=== PATIENT | male | born 1935 | race Caucasian/White ===

== ENCOUNTER 2021-01-27 15:38 | Observation (INO) | payer MEDICARE, BC ==
--- NOTE | 2021-01-27 16:30 | ED ---
General Adult HPI - General Chief complaint: Altered Mental Status Stated complaint: AMS Time Seen by Provider: 01/27/21 16:05 Source: patient, family (Daughter), RN notes reviewed, old records reviewed Mode of arrival: ambulatory Limitations: no limitations - History of Present Illness Initial comments: This is a well-appearing 85-year-old white male that presents to the emergency room with his daughter as a transfer from [facility]. Patient was sent for observation and a neuro consult with an MRI for altered mental status. 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 Patient has been having hallucinations and has fallen out of bed at [facility] twice since. Patient denies hitting his head. Patient does have history of a left lobectomy due to cancer. He is a lro-[id number]-[id number] diabetic, hypertension, chronic kidney disease, COPD, cardiac stenosis and hyperlipidemia. -: days(s) (1) Location: right, lower extremity Radiation: non-radiation Severity scale (1-10): 5 Quality: aching Consistency: intermittent Improves with: rest Worsens with: movement Associated Symptoms: denies other symptoms Treatments Prior to Arrival: other (Transfer from [facility]) - Related Data Allergies Allergy/AdvReac Type Severity Reaction Status Date / Time No Known Allergies Allergy Verified 01/27/21 17:10 Review of Systems ROS Statement: Those systems with pertinent positive or pertinent negative responses have been documented in the HPI. ROS Other: All systems not noted in ROS Statement are negative. Past Medical History Past Medical History: COPD, Diabetes Mellitus, Hyperlipidemia, Hypertension Additional Past Medical History / Comment(s): hyperkalema, Prostate Cancer. Lung Cancer. Hypertension. Osteoarthritis. Chronic Kindey dx. c. carotid stenosis. Chronic Pain History of Any Multi-Drug Resistant Organisms: None Reported Additional Past Surgical History / Comment(s): left lower lobe of lung. left knee. Smoking Status: Former smoker Past Alcohol Use History: None Reported Past Drug Use History: None Reported General Exam Limitations: no limitations General appearance: alert, in no apparent distress Head exam: Present: atraumatic, normocephalic, normal inspection Eye exam: Present: normal appearance, PERRL, EOMI. Absent: scleral icterus, conjunctival injection, periorbital swelling Pupils: Present: miosis ENT exam: Present: normal exam, normal oropharynx, mucous membranes moist Neck exam: Present: normal inspection, full ROM. Absent: tenderness, m eningismus, lymphadenopathy Respiratory exam: Present: normal lung sounds bilaterally, other (Left lower lobe lobectomy absent breath sounds). Absent: respiratory distress, wheezes, rales, rhonchi, stridor Cardiovascular Exam: Present: regular rate, normal rhythm, normal heart sounds. Absent: systolic murmur, diastolic murmur, rubs, gallop, clicks GI/Abdominal exam: Present: soft, normal bowel sounds. Absent: distended, tenderness, guarding, rebound, rigid Extremities exam: Present: normal inspection, full ROM, normal capillary refill. Absent: tenderness, pedal edema, joint swelling, calf tenderness Back exam: Present: normal inspection. Absent: tenderness, CVA tenderness (R), CVA tenderness (L) Neurological exam: Present: alert, oriented X3, CN II-XII intact. Absent: motor sensory deficit Expanded Patient oriented to: Present: person, place, time Speech: Present: fluid speech Cranial nerves: EOM's Intact: Normal, Gag Reflex: Normal, Tongue Deviation: Normal, Facial Sensation: Normal Motor strength exam: RUE: 5, LUE: 5, RLE: 5, LLE: 5 Eye Response: (4) open spontaneously Motor Response: (6) obeys commands Verbal Response: (5) oriented [place] Total: 15 Psychiatric exam: Present: normal affect, normal mood Skin exam: Present: warm, dry, intact, normal color. Absent: rash, cyanosis, diaphoretic, petechiae, pallor Course Vital Signs 01/27/21 15:49 Temperature 98.6 F Pulse Rate 99 Respiratory 20 Rate Blood Pressure 160/90 O2 Sat by Pulse 96 Oximetry Medical Decision Making - Medical Decision Making This is a well-appearing 85-year-old male that presents to the emergency room as a transfer from [facility] for neuro consult and MRI for altered mental status. Patient is alert and oriented 4 with no focal neurological deficits. He denies any headaches or head injuries. He has recently been taking Rosholt for hip pain which daughter states could likely be the cause of his falls. Case discussed with Dr. Lynne. Disposition Clinical Impression: Altered mental status Disposition: ADMITTED IP TO THIS HOSP Condition: Good Decision Date: 01/27/21 Decision Time: 16:44
[2021-01-27] MEDS ORDERED: NALOXONE 0.4 MG/ML 1 ML VIAL IV PRN (16:44)
[2021-01-27 20:39] LABS: Glucose,Whole Blood 375 mg/dL (75-99)
[2021-01-27] MEDS: INSULIN ASPART (NovoLOG) 100 UNIT/ML VIAL SQ SCH (21:22)
[2021-01-27] MEDS ORDERED: IPRATROPIUM-ALBUTEROL 3 ML NEB INHALATION PRN (23:21)
--- NOTE | 2021-01-27 23:31 | P.HPIM ---
History of Present Illness H&P Date: 01/27/21 Chief Complaint: fall 85 year old male with DM on oral hypoglycemics, hypertension , hyperlipidemia, CKD 3, COPD patient is an assisted living facility resident , patient daughter brings him in today for a fall at the assisted living . patient tells me, he was snoozing on the chair , woke up , and , he thinks, he was half asleep tried to get up and somehow missed his walker and fell. he denies head injury or Loss of consciousness. he denies any associated palpitations, dizziness, or lightheadedness. he fell and could not get up and pressed the panic button on his emergency life vest he is wearing. patient daughter reports, that since he was diagnosed with severe osteoarthritis and necrosis of the head of the right femur, he was started on norco, and since then he sustained 3 falls. no history of stroke or CAD. patient was evaluated at [facility] and workup was pretty much unremarkable for any acute pathology CT C-spine no acute fractures CT brain no acute pathology , chronic small vessel ischemia blood work showed anemia hgb 10.8 no baseline to compare , CKD3 cr 1.4, trops negative , urine drug screen positive for opiates. UA unremarkable WBC 9 imaging showed no acute fractures, right hip deformity of femur head and acetabulum confirmed by xray patient was sent to our hospital for neuro eval Review of Systems Pertinent positives as noted in HPI. All other systems were reviewed and are negative Past Medical History Past Medical History: COPD, Diabetes Mellitus, Hyperlipidemia, Hypertension Additional Past Medical History / Comment(s): hyperkalema, Prostate Cancer. Lung Cancer. Hypertension. Osteoarthritis. Chronic Kindey dx. c. carotid stenosis. Chronic Pain History of Any Multi-Drug Resistant Organisms: None Reported Additional Past Surgical History / Comment(s): left lower lobe of lung. left knee. Smoking Status: Former smoker Past Alcohol Use History: None Reported Past Drug Use History: None Reported - Past Family History family Family Medical History: No Reported History Medications and Allergies Home Medications Medication Instructions Recorded Confirmed Type Acetaminophen [Tylenol Arthritis] 1,300 mg PO TID PRN 01/27/21 01/27/21 History Aspirin EC [Ecotrin Low Dose] 81 mg PO DAILY@0700 01/27/21 01/27/21 History Calcium Carbonate [Tums] 1,000 mg PO Q2H PRN 01/27/21 01/27/21 History Citalopram Hydrobromide [CeleXA] 20 mg PO DAILY@69901/27/21 01/27/21 History Diltiazem HCl [Diltiazem HCl 24Hr 240 mg PO DAILY@69901/27/21 01/27/21 History ER] Docusate [Colace] 100 mg PO BID@07,199901/27/21 01/27/21 History HYDROcodone/APAP 5-325MG [[place] 1 tab PO TID@0700,1400,199901/27/21 01/27/21 History 5-325] Magnesium Hydroxide [Milk of 2,400 mg PO DAILY PRN 01/27/21 01/27/21 History Magnesia] Miconazole Nitrate [Miconazole 1 applic TOPICAL BID PRN 01/27/21 01/27/21 History Nitrate 2%] Multivitamins, Thera [Multivitamin 1 tab PO DAILY 01/27/21 01/27/21 History (formulary)] Oxybutynin Chloride 5 mg PO BID@0700,17001/27/21 01/27/21 History Polyethylene Glycol 3350 [Miralax] 17 gm PO DAILY PRN 01/27/21 01/27/21 History Rosuvastatin [Crestor] 10 mg PO DAILY@169901/27/21 01/27/21 History glipiZIDE [Glucotrol] 5 mg PO DAILY@0701/27/21 01/27/21 History guaiFENesin-DM 100-10MG/5ML 5 ml PO Q4H PRN 01/27/21 01/27/21 History [Robitussin DM] lisinopriL [Zestril] 2.5 mg PO DAILY@0701/27/21 01/27/21 History Allergies Allergy/AdvReac Type Severity Reaction Status Date / Time No Known Allergies Allergy Verified 01/27/21 19:12 Physical Exam Vitals: Vital Signs Temp Pulse Resp BP Pulse Ox 01/27/21 18:30 98.1 F 01/27/21 15:49 98.6 F 99 20 160/90 96 Intake and Output 01/27/21 01/27/21 01/27/21 06:59 14:59 22:59 Output Total 1200 Balance -1200 Output: Urine 1200 Uretheral (Esquivel) 1200 Other: Weight 90.718 kg Constitutional: No acute distress, conversant, pleasant Eyes: Anicteric sclerae, moist conjunctiva, Pupils equal round reactive to light ENMT: NC/AT Oropharynx clear, no erythema, or exudates Neck: Supple, FROM, no masses, or JVD No carotid bruits No thyromegaly Lungs: Clear to auscultation Clear to percussion Normal respiratory effort, no accessory muscle use Cardiovascular: Heart regular in rate and rhythm, No murmurs, gallops, or rubs No peripheral edema Abdominal: Soft Nontender, no guarding, rebound or rigidity Abdomen moving with respiration Normoactive bowel sounds No hepatomegaly, No splenomegaly No palpable mass No abdominal wall hernia noted Skin: Normal temperature, tone, texture, turgor No induration No subcutaneous nodules No rash, lesions No ulcers Extremities: No digital cyanosis No clubbing Pedal pulses intact and symmetrical Radial pulses intact and symmetrical No calf tenderness Psychiatric: Alert and oriented to person, place and time Appropriate affect fair judgement Neuro Muscles Strength 5/5 in bilateral upper extremity , 4/5 of left lower extremity , and unable to examine his right lower extremity as limited range of motion due to pain , patient preferred flexion at hip and knee for comfort and seemed to be stiff. or in pain when attempted to move . Sensation to light touch grossly present throughout Cranial nerves II-XII grossly intact No focal sensory deficits Lymphatics: no palpable cervical or supraclavicular , or inguinal lymph nodes Assessment and Plan Assessment: fall at home fall precautions neuro checks PT eval imaging reviewed no acute fractures tylenol for pain gentle IVF hydration esquivel cath care, inserted at [facility] chronic conditions DM , insulin sliding scale hypertension ,resume cardiac meds CKD 3 stable , monitor urine output , avoid nephrotoxic meds COPD compensated, duoneb PRN follow up labs patient is no code anticipated length of stay < 2 midnights anticipated discharge home
[2021-01-28] MEDS: ACETAMINOPHEN TAB 325 MG TAB PO PRN (04:23)
[2021-01-28] MEDS ORDERED: OXYBUTYNIN CHLORIDE 5 MG TAB PO SCH (09:00)
[2021-01-28 09:11] LABS: Glucose,Whole Blood 198 mg/dL (75-99)
[2021-01-28] MEDS: CITALOPRAM HYDROBROMIDE 20 MG TAB PO SCH (10:03)
[2021-01-28] MEDS: ASPIRIN 81 MG PO SCH (10:03)
[2021-01-28] MEDS: INSULIN ASPART (NovoLOG) 100 UNIT/ML VIAL SQ SCH ×4 (10:03→20:50)
[2021-01-28] MEDS: DOCUSATE 100 MG CAP PO SCH ×2 (10:03→20:50)
[2021-01-28] MEDS: DILTIAZEM CD 240 MG CAP.ER.24H PO SCH (10:04)
[2021-01-28 12:24] LABS: Glucose,Whole Blood 275 mg/dL (75-99)
[2021-01-28 12:25] LABS: Basophils % (A) 0 %; Eosinophils # (A) 0.2 k/uL (0-0.7); Eosinophils % (A) 2 %; HCT 33.5 % (39.0-53.0); HGB 10.7 gm/dL (13.0-17.5); Lymphocytes # (A) 1.6 k/uL (1.0-4.8); Lymphocytes % (A) 17 %; MCH 30.5 pg (25.0-35.0); MCV 95.5 fL (80.0-100.0); Mean Platelet Volume 7.5; Monocytes # (A) 0.5 k/uL (0-1.0); Monocytes % (A) 5 %; Neutrophils # (A) 7.2 k/uL (1.3-7.7); Neutrophils % (A) 75 %; Platelet Count 307 k/uL (150-450); RBC 3.51 m/uL (4.30-5.90); RDW 12.4 % (11.5-15.5); WBC 9.6 k/uL (3.8-10.6)
[2021-01-28 16:40] LABS: African American GFR (CKD) 57.3 (60.0-200.0); Anion Gap 2.3 mmol/L (4.00-12.00); BUN/Creat Ratio 21.54 Ratio (12.00-20.00); Calcium 9.7 mg/dL (8.7-10.3); Carbon Dioxide 32.7 mmol/L (21.6-31.8); Non-African American GFR(CKD) 49.4 (60.0-200.0); Potassium 4.3 mmol/L (3.5-5.5)
--- NOTE | 2021-01-28 16:51 | P.PN ---
Subjective Patient was seen and evaluated by me this morning. Outer at bedside. Patient is feeling fairly well. Daughter informed me that his mentation is back to baseline. No more confusion. Objective - Vital Signs Vital signs: Vital Signs Temp 98 F 01/28/21 13:00 Pulse 81 01/28/21 13:00 Resp 17 01/28/21 13:00 BP 154/65 01/28/21 13:00 Pulse Ox 96 01/28/21 13:00 Intake & Output 01/27/21 01/28/21 01/28/21 18:59 06:59 18:59 Intake Total 240 550 500 Output Total 2200 1300 1000 Balance -1960 -750 -500 Weight 90.718 kg 90.718 kg Intake: Oral 240 550 500 Output: Urine 2200 1300 1000 Uretheral ([place]) 1200 Other: Voiding Method Indwelling Catheter Indwelling Catheter - Exam General: The patient is awake and alert, in no distress Eye: there is normal conjunctiva bilaterally. Neck: The neck is supple, there is no JVD. Cardiovascular: Normal S1-S2, no S3-S4, no murmurs. Respiratory: Lungs clear to auscultation bilaterally Gastrointestinal: Abdomen is soft, nontender Musculoskeletal: There is no pedal edema. Neurological:. Speech is normal. Skin: Skin is warm and dry - Labs CBC & Chem 7: 01/28/21 12:07 01/28/21 12:07 Labs: Abnormal Lab Results - Last 24 Hours (Table) 01/27/21 01/28/21 01/28/21 Range/Units 20:36 09:09 12:07 RBC 3.51 L (4.30-5.90) m/uL Hgb 10.7 L (13.0-17.5) gm/dL Hct 33.5 L (39.0-53.0) % Carbon Dioxide (21.6-31.8) mmol/L Anion Gap (4.00-12.00) mmol/L BUN (9.0-27.0) mg/dL Est GFR (CKD-EPI)AfAm (60.0-200.0) Est GFR (CKD-EPI)NonAf (60.0-200.0) BUN/Creatinine Ratio (12.00-20.00) Ratio Glucose (70-110) mg/dL POC Glucose (mg/dL) 375 H 198 H (75-99) mg/dL 01/28/21 01/28/21 Range/Units 12:07 12:19 RBC (4.30-5.90) m/uL Hgb (13.0-17.5) gm/dL Hct (39.0-53.0) % Carbon Dioxide 32.7 H (21.6-31.8) mmol/L Anion Gap 2.30 L (4.00-12.00) mmol/L BUN 28.0 H (9.0-27.0) mg/dL Est GFR (CKD-EPI)AfAm 57.3 L (60.0-200.0) Est GFR (CKD-EPI)NonAf 49.4 L (60.0-200.0) BUN/Creatinine Ratio 21.54 H (12.00-20.00) Ratio Glucose 251 H (70-110) mg/dL POC Glucose (mg/dL) 275 H (75-99) mg/dL Assessment and Plan Assessment: This is a 85-year-old male with complex past medical history noted below who presented from a local assisted living facility with a fall. Patient was evaluated at outside emergency room and computed tomography scan of the head and cervical spine with no acute findings. Patient was sent to our hospital for further evaluation 1. Fall with gait imbalance, PT/OT evaluation. Imaging negative. Patient at baseline only able to walk a few steps with a walker. 2. Urinary retention, status post Browne catheter insertion. Discontinue oxybutynin. 3. Chronic medical problems type 2 diabetes, essential hypertension, hyper lipidemia, stage III CKD, COPD, chronic hip pain, history of prostate cancer Today, I had a prolonged discussion with the patient and his daughter. They're not interested in any aggressive measures. We will continue supportive care. sewage disposal worker consultation for placement.
[2021-01-28 17:37] LABS: Glucose,Whole Blood 190 mg/dL (75-99)
--- NOTE | 2021-01-28 18:08 | P.CNNES ---
History of Present Illness Consult date: 01/28/21 Requesting physician: Aman Shepherd Reason for Consult: Altered mental status History of Present Illness: This is a tele-neurology consultation performed today on 01/28/2021. Time on tele-neurology robot from 11:40 to 12:10 PM. Patient is a 85-year-old male came to the hospital by ambulance as a transfer from [facility] yesterday at 3:38 PM. Patient was sent for observation and for a neurological consultation with an MRI for altered mental status. Per patient's daughter, patient was placed on Almo for pain from necrosis of his right hip by primary care for pain control. Patient has been having halluci nations Patient's vital signs on arrival blood pressure 160/90, pulse rate 99, temperature 98.6. EMS flow sheet not available in the chart. Patient's workup at [facility] revealed CT of the head showed age- related atrophy, chronic small vessel ischemic changes, without any acute intracranial process. CT of the cervical spine showed no fracture or subluxation. His x-ray of the left knee showed no fracture. No abnormality of the tibia and fibula. EKG was unconfirmed. Urine drug screen negative. UA negative. TSH normal. PT 20, INR 0.9, PTT 38.3. Glucose 205, BUN 39, creatinine 1.4. AST 24, ALT 23. WBC is normal. CK 41. Troponin negative. Chest x-ray showed no acute cardiopulmonary disease. Right hip x-ray showed marked deformity of the right hip femoral head and acetabulum with marked progression as compared to the x-ray from 2018. No fracture or dislocation. Right femur x-ray showed no fracture. Patient at this time does not do details why he came to the hospital. He denies headache, dizziness. He states his right knee hurts, had left knee surgery. Denies any abdominal pain or chest pain. He states he walks with a walker for the last 3-4 months. His 3 weeks ago as he was just standing there by her side. He did not take care of himself. Patient's daughter lives in [place] whereas he had 2 sons and one of them was murdered. He currently lives in a care home facility. Patient denies any slurring of speech, droopy face, any visual problems, numbness tingling or focal weakness. He states his memory is good. Patient states that he has smoked 1-1/2 pack per day for 35 years, quit in 1989 after he was diagnosed with lung cancer. He also quit drinking alcohol in 1989. I spoke to patient's daughter Randi in detail. She states that yesterday on Friday, he fell in front of the TV. He mentioned his daughter he saw behind the window someone pulled up a red pickup truck and a man. Patient was trying to get their to help that man, but patient fell. Patient's daughter states that they have a patio, nobody would be able to bring up pickup truck there. Patient was taken to [facility], where he was noted to have some slurring of speech, lip for slightly droopy, eyes droopy and he was talking with the thick tongue. He was taken to [facility], where it was felt that patient possibly is having side effects of Almo that was started about 10 days ago which probably resulted in delirium. However in order to rule out stroke, he was transferred to [facility]. 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 Patient had declined surgery, and only wanted pain control, as he also has significant knee arthritis and due to his age, he declined surgery. Review of Systems As above in HPI. All other 14 point review of systems reviewed and noncontribut ory Past Medical History Past Medical History: COPD, Diabetes Mellitus, Hyperlipidemia, Hypertension Additional Past Medical History / Comment(s): hyperkalema, Prostate Cancer. Lung Cancer. Hypertension. Osteoarthritis. Chronic Kindey dx. c. carotid stenosis. Chronic Pain History of Any Multi-Drug Resistant Organisms: None Reported Additional Past Surgical History / Comment(s): left lower lobe of lung. left knee. Past Anesthesia/Blood Transfusion Reactions: No Reported Reaction Smoking Status: Former smoker Past Alcohol Use History: None Reported Past Drug Use History: None Reported - Past Family History family Family Medical History: No Reported History Medications and Allergies Home Medications Medication Instructions Recorded Confirmed Type Acetaminophen [Tylenol Arthritis] 1,300 mg PO TID PRN 01/27/21 01/27/21 History Aspirin EC [Ecotrin Low Dose] 81 mg PO DAILY@0700 01/27/21 01/27/21 History Calcium Carbonate [Tums] 1,000 mg PO Q2H PRN 01/27/21 01/27/21 History Citalopram Hydrobromide [CeleXA] 20 mg PO DAILY@0701/27/21 01/27/21 History Diltiazem HCl [Diltiazem HCl 24Hr 240 mg PO DAILY@69901/27/21 01/27/21 History ER] Docusate [Colace] 100 mg PO BID@0700,199901/27/21 01/27/21 History HYDROcodone/APAP 5-325MG [Almo 1 tab PO TID@0700,1400,199901/27/21 01/27/21 History 5-325] Magnesium Hydroxide [Milk of 2,400 mg PO DAILY PRN 01/27/21 01/27/21 History Magnesia] Miconazole Nitrate [Miconazole 1 applic TOPICAL BID PRN 01/27/21 01/27/21 History Nitrate 2%] Multivitamins, Thera [Multivitamin 1 tab PO DAILY 01/27/21 01/27/21 History (formulary)] Oxybutynin Chloride 5 mg PO BID@0700,1700 01/27/21 01/27/21 History Polyethylene Glycol 3350 [Miralax] 17 gm PO DAILY PRN 01/27/21 01/27/21 History Rosuvastatin [Crestor] 10 mg PO DAILY@17001/27/21 01/27/21 History glipiZIDE [Glucotrol] 5 mg PO DAILY@0701/27/21 01/27/21 History guaiFENesin-DM 100-10MG/5ML 5 ml PO Q4H PRN 01/27/21 01/27/21 History [Robitussin DM] lisinopriL [Zestril] 2.5 mg PO DAILY@0701/27/21 01/27/21 History Allergies Allergy/AdvReac Type Severity Reaction Status Date / Time No Known Allergies Allergy Verified 01/27/21 19:12 Physical Examination - Vital Signs Vital Signs: Vital Signs Temp Pulse Pulse Resp BP BP Pulse Ox 01/28/21 05:25 176/73 01/28/21 04:20 98.1 F 88 20 181/77 95 01/27/21 19:45 98.4 F 87 20 146/87 94 L 01/27/21 18:30 98.1 F 09/25/21 15:49 98.6 F 99 20 160/90 96 Intake and Output 01/27/21 01/28/21 01/28/21 22:59 06:59 14:59 Intake Total 590 200 Output Total 2200 1300 Balance -1610 -1100 Intake: Oral 590 200 Output: Urine 2200 1300 Uretheral ([place]) 1200 Other: Voiding Method Indwelling Catheter Weight 90.718 kg Patient is an elderly male, in no acute distress. Patient is alert awake oriented to time place and person. He knows it is January 2021, fall season that he is in "[facility]"in [facility]. He knows name of the current president. Speech and language functions are normal. Attention, concentration and fund of knowledge appears somewhat adequate. Patient can name and repeat very well. No aphasia or dysarthria. On cranial examination, pupils are round and reacting to light, visual reed are full on confrontation, extraocular muscles are intact with no nystagmus. Face is symmetric, tongue protrudes to the midline. Palatal elevation and sensation normal, hearing is moderately reduced and shoulder shrug normal, facial sensation normal. Shoulder shrug normal. On muscle strength testing, there is no pronator drift and the strength is normal in arms distally and proximally. Patient has right hip and knee issues, therefore is slightly weak. Deep tendon reflexes are 1 in the upper limbs, 1 at the right knee trace at the left knee. Plantars downgoing bilaterally. Sensory to touch is equal with no neglect. Cerebellar function showed no ataxia for [id number] testing. No dysdiadochokinesia. Tone and bulk of muscles normal. Gait deferred. On general examination, there is no carotid bruit or murmur, S1-S2 audible. Abdomen is soft nontender. Chest is clear. Peripheral pulses are present. No edema. Results - Laboratory Findings CBC and BMP: 01/28/21 12:07 01/28/21 12:07 Abnormal Lab Findings: Abnormal Labs 01/27/21 01/28/21 20:36 09:09 POC Glucose (mg/dL) 375 H 198 H Assessment and Plan Assessment: * Altered mental status, possibly mild delirium. Patient reportedly developed hallucinations, after he was given Almo 10 days ago for right avascular hip necrosis (planned for conservative treatment). Patient is having fluctuating mental status, consistent with delirium. At present his mentation is completely intact. * Hypertension * Diabetes * Hyperlipidemia * Avascular hip necrosis right hip. Plan: * MRI of the brain * Carotid Doppler * B12, folate. * Continue aspirin 81 mg and Lipitor 20 mg. * Dr. Bill Crawley will resume neurology service from the morning. * I spoke to patient's daughter on the telephone in detail, spend 15 minutes in obtaining history, besides the time spent on teleneurology from 11:10 to 11:40 AM. Time with Patient: Greater than 30
--- NOTE | 2021-01-28 19:36 | US ---
EXAMINATION TYPE: US carotid duplex BILAT DATE OF EXAM: 01/28/2021 COMPARISON: NONE CLINICAL HISTORY: AMS, fall, rule out stenosis. altered mental status, fall. patient states carotid e ndarterectomy- left EXAM MEASUREMENTS: RIGHT: Peak Systolic Velocity (PSV) cm/sec ----- Right CCA: 101 ----- Right ICA: 124 ----- Right ECA: 125 ICA/CCA ratio: 1.23 RIGHT: End Diastole cm/sec ----- Right CCA: 10.4 ----- Right ICA: 22.7 ----- Right ECA: 0.0 LEFT: Peak Systolic Velocity (PSV) cm/sec ----- Left CCA: 140 ----- Left ICA: 194 ----- Left ECA: 119 ICA/CCA ratio: 1.39 LEFT: End Diastole cm/sec ----- Left CCA: 0.0 ----- Left ICA: 23.3 ----- Left ECA: 0.0 VERTEBRALS (direction of flow): Right Vertebral: Antegrade Left Vertebral: unable to visualize Rhythm: Normal moderate plaque right bifurcation. mild plaque left bifurcation. tortuous left ICA. increased velocit ies left CCA and left ICA IMPRESSION: There is antegrade flow in the right vertebral artery. We could not show flow in the left vertebral a rtery which is probably occluded. Moderate plaque formation bilaterally. There is 50-70% stenosis in the left common and internal carot id artery and close to 50% stenosis in the right internal carotid artery. Criteria for Assigning % of Stenosis / Diameter reduction (Estimation based on the indirect measurements of the internal carotid artery velocities (ICA PSV). 1. Normal (no stenosis)=ICA PSV < 125 cm/s: ratio < 2.0: ICA EDV<40 cm/s. 2. Less than 50% stenosis=ICA PSV < 125 cm/s: ratio < 2.0: ICA EDV<40 cm/s. 3. 50 to 69% stenosis=ICA PSV of 125 to 230 cm/s: ration 2.0 ? 4.0: ICA EDV 40-100 cm/s. 4. Greater than 70% stenosis to near occlusion= ICA PSV > 230 cm/s: ratio > 4.0: ICA EDV > 100 cm/s. 5. Near occlusion= ICA PSV velocities may be low or undetectable: variable ratio and ICA EDV. 6. Total occlusion=unable to detect flow.
[2021-01-28 20:18] LABS: Glucose,Whole Blood 230 mg/dL (75-99)
[2021-01-28] MEDS: ATORVASTATIN 20 MG TAB PO SCH (20:50)
[2021-01-29 07:05] LABS: Glucose,Whole Blood 195 mg/dL (75-99)
[2021-01-29] MEDS: CITALOPRAM HYDROBROMIDE 20 MG TAB PO SCH (08:12)
[2021-01-29] MEDS: ASPIRIN 81 MG PO SCH (08:12)
[2021-01-29] MEDS: INSULIN ASPART (NovoLOG) 100 UNIT/ML VIAL SQ SCH ×4 (08:13→20:53)
[2021-01-29] MEDS: DOCUSATE 100 MG CAP PO SCH ×2 (08:13→20:53)
[2021-01-29] MEDS: DILTIAZEM CD 240 MG CAP.ER.24H PO SCH (08:13)
[2021-01-29 10:51] LABS: Folate, Serum >24.0 ng/mL
[2021-01-29] MEDS: ACETAMINOPHEN TAB 325 MG TAB PO PRN (11:38)
[2021-01-29 12:06] LABS: Glucose,Whole Blood 302 mg/dL (75-99)
--- NOTE | 2021-01-29 12:16 | P.PN ---
Subjective Patient is doing well today. He was up in the chair when I saw him. No acute events overnight. Objective - Vital Signs Vital signs: Vital Signs Temp 98.7 F 01/29/21 11:02 Pulse 89 01/29/21 11:02 Resp 16 01/29/21 11:02 BP 117/64 01/29/21 11:02 Pulse Ox 95 01/29/21 11:02 Intake & Output 01/28/21 01/29/21 01/29/21 18:59 06:59 18:59 Intake Total 1040 Output Total 1000 1000 Balance 40 -1000 Intake: Oral 1040 Output: Urine 1000 1000 Other: Voiding Method Indwelling Catheter Indwelling Catheter Indwelling Catheter # Bowel Movements 2 1 - Exam General: The patient is awake and alert, in no distress Eye: there is normal conjunctiva bilaterally. Neck: The neck is supple, there is no JVD. Cardiovascular: Normal S1-S2, no S3-S4, no murmurs. Respiratory: Lungs clear to auscultation bilaterally Gastrointestinal: Abdomen is soft, nontender Musculoskeletal: There is no pedal edema. Neurological:. Speech is normal. Skin: Skin is warm and dry - Labs CBC & Chem 7: 01/28/21 12:07 01/28/21 12:07 Labs: Abnormal Lab Results - Last 24 Hours (Table) 01/28/21 01/28/21 01/28/21 Range/Units 12:07 12:07 12:19 RBC 3.51 L (4.30-5.90) m/uL Hgb 10.7 L (13.0-17.5) gm/dL Hct 33.5 L (39.0-53.0) % Carbon Dioxide 32.7 H (21.6-31.8) mmol/L Anion Gap 2.30 L (4.00-12.00) mmol/L BUN 28.0 H (9.0-27.0) mg/dL Est GFR (CKD-EPI)AfAm 57.3 L (60.0-200.0) Est GFR (CKD-EPI)NonAf 49.4 L (60.0-200.0) BUN/Creatinine Ratio 21.54 H (12.00-20.00) Ratio Glucose 251 H (70-110) mg/dL POC Glucose (mg/dL) 275 H (75-99) mg/dL 01/28/21 01/28/21 01/29/21 Range/Units 17:34 20:16 06:53 RBC (4.30-5.90) m/uL Hgb (13.0-17.5) gm/dL Hct (39.0-53.0) % Carbon Dioxide (21.6-31.8) mmol/L Anion Gap (4.00-12.00) mmol/L BUN (9.0-27.0) mg/dL Est GFR (CKD-EPI)AfAm (60.0-200.0) Est GFR (CKD-EPI)NonAf (60.0-200.0) BUN/Creatinine Ratio (12.00-20.00) Ratio Glucose (70-110) mg/dL POC Glucose (mg/dL) 190 H 230 H 195 H (75-99) mg/dL 01/29/21 Range/Units 11:58 RBC (4.30-5.90) m/uL Hgb (13.0-17.5) gm/dL Hct (39.0-53.0) % Carbon Dioxide (21.6-31.8) mmol/L Anion Gap (4.00-12.00) mmol/L BUN (9.0-27.0) mg/dL Est GFR (CKD-EPI)AfAm (60.0-200.0) Est GFR (CKD-EPI)NonAf (60.0-200.0) BUN/Creatinine Ratio (12.00-20.00) Ratio Glucose (70-110) mg/dL POC Glucose (mg/dL) 302 H (75-99) mg/dL Assessment and Plan Assessment: This is a 85-year-old male with complex past medical history noted below who presented from a local assisted living facility with a fall. Patient was evaluated at outside emergency room and computed tomography scan of the head and cervical spine with no acute findings. Patient was sent to our hospital for further evaluation 1. Fall with gait imbalance, PT/OT evaluation. Imaging negative. Patient at baseline only able to walk a few steps with a walker. 2. Urinary retention, status post Browne catheter insertion. Discontinued oxybutynin. 3. Chronic medical problems type 2 diabetes, essential hypertension, hyperlipidemia, stage III CKD, COPD, chronic hip pain, history of prostate cance r Plan for voiding trial today. Discontinue Browne catheter. Anticipate discharge home in the morning.
--- NOTE | 2021-01-29 12:34 | P.GSCN ---
History of Present Illness Consult date: 01/29/21 Reason for Consult: carotid stenosis Requesting physician: Bill Crawley History of present illness: This an 85-year-old male who was a transfer from [facility] 2 days ago with altered mental status changes. He has a past medical history of COPD, lung cancer status post left lobectomy, diabetes mellitus, hypertension, hyperlipidemia and carotid stenosis. He shouldn't states he had a left carotid endarterectomy several years ago and [place]. He does have a history of smoking but quit 35 years ago. The patient has no recollection of any events and is not sure why he was brought to the hospital. Apparently the patient was recently put on [place] for hip pain. According to neurology's note the daughter stated he had some slurring of the speech and facial drooping. Neurology was consulted for this reason. He had a CT of the brain that showed age-related atrophy, chronic small vessel ischemic changes, without any acute intracranial process. He had multiple CTs and x-rays done as well as part of this workup at [facility]. Neurology ordered a carotid duplex with findings of bilateral carotid stenosis for which vascular surgery has been consulted. The patient denies any extremity weakness, no visual changes, no difficulty with speaking or slurred speech, no difficulty with swallowing, no facial drooping or any other focal deficits. He denies any chest pain, shortness of breath, abdominal pain, nausea, vomiting, fever or chills. He states he has not been following with any vascular surgeon. He is taking a daily low-dose aspirin and Crestor 10 mg daily. MRI of the brain has been ordered, it is pending completion. Review of Systems A 14 point review of systems was completed all pertinent positives and negatives as stated in the HPI. Past Medical History Past Medical History: COPD, Diabetes Mellitus, Hyperlipidemia, Hypertension Additional Past Medical History / Comment(s): hyperkalema, Prostate Cancer. Lung Cancer. Hypertension. Osteoarthritis. Chronic [place] dx. c. carotid stenosis. Chronic Pain History of Any Multi-Drug Resistant Organisms: None Reported Additional Past Surgical History / Comment(s): left lower lobe of lung. left knee. Past Anesthesia/Blood Transfusion Reactions: No Reported Reaction Smoking Status: Former smoker Past Alcohol Use History: None Reported Past Drug Use History: None Reported - Past Family History family Family Medical History: No Reported History Medications and Allergies Home Medications Medication Instructions Recorded Confirmed Type Acetaminophen [Tylenol Arthritis] 1,300 mg PO TID PRN 01/27/21 01/27/21 History Aspirin EC [Ecotrin Low Dose] 81 mg PO DAILY@0701/27/21 01/27/21 History Calcium Carbonate [Tums] 1,000 mg PO Q2H PRN 01/27/21 01/27/21 History Citalopram Hydrobromide [CeleXA] 20 mg PO DAILY@69901/27/21 01/27/21 History Diltiazem HCl [Diltiazem HCl 24Hr 240 mg PO DAILY@69901/27/21 01/27/21 History ER] Docusate [Colace] 100 mg PO BID@07,199901/27/21 01/27/21 History HYDROcodone/APAP 5-325MG [[place] 1 tab PO TID@0700,1400,199901/27/21 01/27/21 History 5-325] Magnesium Hydroxide [Milk of 2,400 mg PO DAILY PRN 01/27/21 01/27/21 History Magnesia] Miconazole Nitrate [Miconazole 1 applic TOPICAL BID PRN 01/27/21 01/27/21 History Nitrate 2%] Multivitamins, Thera [Multivitamin 1 tab PO DAILY 01/27/21 01/27/21 History (formulary)] Oxybutynin Chloride 5 mg PO BID@0700,1700 01/27/21 01/27/21 History Polyethylene Glycol 3350 [Miralax] 17 gm PO DAILY PRN 01/27/21 01/27/21 History Rosuvastatin [Crestor] 10 mg PO DAILY@17001/27/21 01/27/21 History glipiZIDE [Glucotrol] 5 mg PO DAILY@0701/27/21 01/27/21 History guaiFENesin-DM 100-10MG/5ML 5 ml PO Q4H PRN 01/27/21 01/27/21 History [Robitussin DM] lisinopriL [Zestril] 2.5 mg PO DAILY@0700 01/27/21 01/27/21 History Allergies Allergy/AdvReac Type Severity Reaction Status Date / Time No Known Allergies Allergy Verified 01/27/21 19:12 Surgical - Exam Vital Signs Temp Pulse Resp BP Pulse Ox 98.6 F 99 20 160/90 96 01/27/21 15:49 01/27/21 15:49 01/27/21 15:49 01/27/21 15:49 01/27/21 15:49 General appearance: The patient is alert, oriented, appears in no acute distress. HET: Head is normocephalic and atraumatic. Pupils are equal and reactive. Neck: Supple without lymphadenopathy. Trachea midline. No carotid bruit. Heart: S1 S2. Regular rate and rhythm. Lungs: Clear to auscultation. Abdomen: Soft, nontender, nondistended. Extremities: Normal skin color and turgor. No cyanosis, rash, ulceration, clubbing, or edema. Bilateral palpable radial pulses. Neurological: No focal deficits. Alert and oriented 3. Results - Labs 01/28/21 12:07 01/28/21 12:07 Abnormal Lab Results - Last 24 Hours (Table) 01/28/21 01/28/21 01/28/21 Range/Units 12:07 12:07 12:19 RBC 3.51 L (4.30-5.90) m/uL Hgb 10.7 L (13.0-17.5) gm/dL Hct 33.5 L (39.0-53.0) % Carbon Dioxide 32.7 H (21.6-31.8) mmol/L Anion Gap 2.30 L (4.00-12.00) mmol/L BUN 28.0 H (9.0-27.0) mg/dL Est GFR (CKD-EPI)AfAm 57.3 L (60.0-200.0) Est GFR (CKD-EPI)NonAf 49.4 L (60.0-200.0) BUN/Creatinine Ratio 21.54 H (12.00-20.00) Ratio Glucose 251 H (70-110) mg/dL POC Glucose (mg/dL) 275 H (75-99) mg/dL 01/28/21 01/28/21 01/29/21 Range/Units 17:34 20:16 06:53 RBC (4.30-5.90) m/uL Hgb (13.0-17.5) gm/dL Hct (39.0-53.0) % Carbon Dioxide (21.6-31.8) mmol/L Anion Gap (4.00-12.00) mmol/L BUN (9.0-27.0) mg/dL Est GFR (CKD-EPI)AfAm (60.0-200.0) Est GFR (CKD-EPI)NonAf (60.0-200.0) BUN/Creatinine Ratio (12.00-20.00) Ratio Glucose (70-110) mg/dL POC Glucose (mg/dL) 190 H 230 H 195 H (75-99) mg/dL Diabetes panel 01/28/21 Range/Units 12:07 Sodium 139 (135-145) mmol/L Potassium 4.3 (3.5-5.5) mmol/L Chloride 104 (96-109) mmol/L Carbon Dioxide 32.7 H (21.6-31.8) mmol/L BUN 28.0 H (9.0-27.0) mg/dL Creatinine 1.3 (0.6-1.5) mg/dL Glucose 251 H (70-110) mg/dL Calcium 9.7 (8.7-10.3) mg/dL Calcium panel 01/28/21 Range/Units 12:07 Calcium 9.7 (8.7-10.3) mg/dL Pituitary panel 01/28/21 Range/Units 12:07 Sodium 139 (135-145) mmol/L Potassium 4.3 (3.5-5.5) mmol/L Chloride 104 (96-109) mmol/L Carbon Dioxide 32.7 H (21.6-31.8) mmol/L BUN 28.0 H (9.0-27.0) mg/dL Creatinine 1.3 (0.6-1.5) mg/dL Glucose 251 H (70-110) mg/dL Calcium 9.7 (8.7-10.3) mg/dL Adrenal panel 01/28/21 Range/Units 12:07 Sodium 139 (135-145) mmol/L Potassium 4.3 (3.5-5.5) mmol/L Chloride 104 (96-109) mmol/L Carbon Dioxide 32.7 H (21.6-31.8) mmol/L BUN 28.0 H (9.0-27.0) mg/dL Creatinine 1.3 (0.6-1.5) mg/dL Glucose 251 H (70-110) mg/dL Calcium 9.7 (8.7-10.3) mg/dL - Imaging Comments: Carotid duplex: Right ICA PSV 124, ICA/CCA ratio 1.23. Left ICA PSV 194, ICA/CCA ratio 1.39. Impression states antegrade flow in the right vertebral artery. Could not show flow in the left vertebral artery which is probably occluded. Moderate plaque formation bilaterally. There is 50-70% stenosis of the left common and internal carotid artery and close to 50% stenosis of the right internal carotid artery. Assessment and Plan Assessment: 1. Altered mental status changes 2. Bilateral ICA stenosis, 50-70% stenosis in the left ICA, less than 50% in the right ICA per carotid ultrasound 3. Recent fall 5. 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 History COPD 5. History of hypertension and hyperlipidemia 6. History of vascular disease, status post left endarterectomy 7. Diabetes mellitus Plan: 1. Continue aspirin and statin 2. Await MRI results 3. Await recommendations from neurology 4. Further recommendations to follow Thank you for this consultation, and allowing us take part in the plan of care of your patient during his hospital stay The impression and plan of care has been dictated as directed. Dr. Browne I performed a history and examination of this patient, discussed the same with the dictator. I agree with the dictator's note ,documented as a scribe. Any additional findings or plans will be noted.
[2021-01-29] MEDS ORDERED: CYANOCOBALAMIN 1,000 MCG/ML 1 ML VIAL IM ONE (16:30)
--- NOTE | 2021-01-29 16:37 | P.PN ---
Subjective Progress Note Date: 01/29/21 I'm seeing the patient for the first time for neurological work-up. Please refer to Dr. Pang's note for further details. Patient is accompanied with his daughter and she stated he is doing drastically better. Denies any further ptosis. Patient denies any focal weakness except for pain over the right hip. He denies of diplopia or slurring of speech. He had previous endartectomy of the left ICA Objective - Vital Signs Vital signs: Vital Signs Temp 98.7 F 01/29/21 11:02 Pulse 89 01/29/21 11:02 Resp 16 01/29/21 11:02 BP 117/64 01/29/21 11:02 Pulse Ox 95 01/29/21 11:02 Intake & Output 01/28/21 01/29/21 01/29/21 18:59 06:59 18:59 Intake Total 1040 Output Total 1000 1000 0 Balance 40 -1000 0 Intake: Oral 1040 Output: Urine 1000 1000 Post Void Residual 0 Other: Voiding Method Indwelling Catheter Indwelling Catheter Indwelling Catheter # Bowel Movements 2 1 - Exam Patient is an elderly male, in no acute distress. NEUROLOGICAL EXAM: Patient is alert awake oriented to time place and person. Speech and language functions are normal. Attention, concentration and fund of knowledge appears somewhat adequate. Patient can name and repeat very well. No aphasia or dysarthria. On cranial examination, pupils are round and reacting to light, visual reed are full on confrontation, extraocular muscles are intact with no nystagmus. Face is symmetric, tongue protrudes to the midline. Palatal elevation and sensation normal, hearing is moderately reduced and shoulder shrug normal, facial sensation normal. Shoulder shrug normal. On muscle strength testing, there is no pronator drift and the strength is normal in arms distally and proximally. Patient has right hip and knee issues, therefore is slightly weak. Tone and bulk of muscles normal. Sensory to touch is equal with no neglect. Cerebellar function showed no ataxia for [id number] testing. No dysdiadochokinesia. Deep tendon reflexes are 1 in the upper limbs, 1 at the right knee trace at the left knee. Plantars downgoing bilaterally. WORK-UP: Carotid duplex is reported as there is antegrade flow in the right vertebral artery. We could not show flow in the left vertebral artery which is probably occluded that. Moderate plaque formation bilaterally. There is a 50-70% stenosis in the left common and internal carotid artery and close to 50% stenosis in the right internal carotid artery. Borderline low vitamin B12 of 253 (normal is 200-944) Serum folate is more than 24 - Labs CBC & Chem 7: 01/28/21 12:07 01/28/21 12:07 Labs: Abnormal Lab Results - Last 24 Hours (Table) 01/28/21 01/28/21 01/28/21 Range/Units 12:07 17:34 20:16 Carbon Dioxide 32.7 H (21.6-31.8) mmol/L Anion Gap 2.30 L (4.00-12.00) mmol/L BUN 28.0 H (9.0-27.0) mg/dL Est GFR (CKD-EPI)AfAm 57.3 L (60.0-200.0) Est GFR (CKD-EPI)NonAf 49.4 L (60.0-200.0) BUN/Creatinine Ratio 21.54 H (12.00-20.00) Ratio Glucose 251 H (70-110) mg/dL POC Glucose (mg/dL) 190 H 230 H (75-99) mg/dL 01/29/21 01/29/21 Range/Units 06:53 11:58 Carbon Dioxide (21.6-31.8) mmol/L Anion Gap (4.00-12.00) mmol/L BUN (9.0-27.0) mg/dL Est GFR (CKD-EPI)AfAm (60.0-200.0) Est GFR (CKD-EPI)NonAf (60.0-200.0) BUN/Creatinine Ratio (12.00-20.00) Ratio Glucose (70-110) mg/dL POC Glucose (mg/dL) 195 H 302 H (75-99) mg/dL Assessment and Plan Assessment: * Altered mental status, possibly mild delirium. Patient reportedly developed hallucinations, after he was given [place] 10 days ago for right avascular hip necrosis (planned for conservative treatment). Patient is having fluctuating mental status, consistent with delirium. At present his mentation is completely intact. * Borderline low vitamin B12 of 253 (normal is 200-944) * Bilateral ICA stenosis of about 50-70% stenosis in the left ICA and less than the 2% stenosis in the right ICA Pro carotid duplex * History of left carotid endarectomy * Hypertension * Diabetes * Hyperlipidemia * Avascular hip necrosis right hip. * History of osteoarthritis on opiates Plan: * MRI Brain is ordered by Dr. Pang to rule out stroke since the per patient's daughter to notified that the neurology team that the patient has some slurring speech, drooping face and drooping lips. Patient is not interested in getting MRI of the brain and the patient daughter is at bite said and she stated that if the patient continues to have these symptoms she will try to arrange as outpatient. * Continue aspirin 81 mg daily. We'll not start the patient on dual antiplatelet because of risk of fall which increases risk of a bleeding with dual antiplatelets at. and I increased Lipitor from 20 mg daily at bedtime daily to 40mg especially with reported carotid stenosis. * Vascular surgery team is consulted for carotid stenosis. Regarding the patient carotid stenosis the patient is not interested in any intervention. * Because of the low vitamin B12 I started the patient on the vitamin B12 1000 g daily as well as one time IM. * Will defer the rest of medical management to the primary team. * Patient is not interested in surgery or any intervention over the the right hip. * Upon discharge recommend the patient to follow-up with a neurologist within 2 weeks as an outpatient. The plan is discussed with the patient and his daughter (who is at bedside). There is no further work-up. Neurology will sign off. Please reconsult if needed. Bill Crawley MD Neuro-Hospitalist. Time with Patient: Less than 30
[2021-01-29 17:23] LABS: Glucose,Whole Blood 251 mg/dL (75-99)
[2021-01-29 20:17] LABS: Glucose,Whole Blood 245 mg/dL (75-99)
[2021-01-29] MEDS: ATORVASTATIN 20 MG TAB PO SCH (20:53)
[2021-01-30 07:00] LABS: Glucose,Whole Blood 221 mg/dL (75-99)
[2021-01-30] MEDS: ASPIRIN 81 MG PO SCH (08:53)
[2021-01-30] MEDS: CITALOPRAM HYDROBROMIDE 20 MG TAB PO SCH (08:53)
[2021-01-30] MEDS: INSULIN ASPART (NovoLOG) 100 UNIT/ML VIAL SQ SCH ×2 (08:53→13:13)
[2021-01-30] MEDS: DOCUSATE 100 MG CAP PO SCH (08:53)
[2021-01-30] MEDS: DILTIAZEM CD 240 MG CAP.ER.24H PO SCH (08:53)
[2021-01-30] MEDS ORDERED: CYANOCOBALAMIN 500 MCG TAB PO SCH (09:00)
--- NOTE | 2021-01-30 11:02 | P.DS ---
Providers Date of admission: 01/27/21 16:55 Expected date of discharge: 01/30/21 Attending physician: Betty Arce MD Consults: 01/27/21 16:44 Consult Physician Routine Consulting Provider: Terri Pang Consult Reason/Comments: Altered mental status Do you want consulting provider notified?: Yes 01/29/21 07:55 Consult Physician Routine Consulting Provider: Govind Ortiz Consult Reason/Comments: carotid stenosis Do you want consulting provider notified?: Yes Primary care physician: [facility] Course: This is a 85-year-old male with complex past medical history noted below who presented from a local assisted living facility with a fall. Patient was evaluated at outside emergency room and computed tomography scan of the head and cervical spine with no acute findings. Patient was sent to our hospital for further evaluation 1. Fall with gait imbalance, PT/OT evaluation. Imaging negative. Patient at baseline only able to walk a few steps with a walker. 2. Urinary retention, status post Browne catheter insertion. Discontinued oxybutynin. Patient passed voiding trial 3. Chronic medical problems type 2 diabetes, essential hypertension, hyperlipidemia, stage III CKD, COPD, chronic hip pain, history of prostate cancer Patient was seen and evaluated by neurology and vascular surgery. MRA of the brain ordered by neurology but patient started on a pursue any further diagnostics. There was also bilateral ICA stenosis noted with history of left endarterectomy for which vascular surgery was consulted and plan is to follow-up outpatient. Patient will be discharged to rehab facility in a stable condition. General: The patient is awake and alert, in no distress Eye: there is normal conjunctiva bilaterally. Neck: The neck is supple, there is no JVD. Cardiovascular: Normal S1-S2, no S3-S4, no murmurs. Respiratory: Lungs clear to auscultation bilaterally Gastrointestinal: Abdomen is soft, nontender Musculoskeletal: There is no pedal edema. Neurological:. Speech is normal. Skin: Skin is warm and dry Patient Condition at Discharge: Fair Plan - Discharge Summary New Discharge Prescriptions: New Acetaminophen Tab [Tylenol] 650 mg PO Q6HR PRN tab PRN Reason: Mild Pain Or Fever > 100.5 Cyanocobalamin [Vitamin B-12] 1,000 mcg PO DAILY tab Continue lisinopriL [Zestril] 2.5 mg PO DAILY@0700 glipiZIDE [Glucotrol] 5 mg PO DAILY@0700 Multivitamins, Thera [Multivitamin (formulary)] 1 tab PO DAILY Polyethylene Glycol 3350 [Miralax] 17 gm PO DAILY PRN PRN Reason: Constipation Diltiazem HCl [Diltiazem HCl 24Hr ER] 240 mg PO DAILY@0700 Citalopram Hydrobromide [CeleXA] 20 mg PO DAILY@0700 Miconazole Nitrate [Miconazole Nitrate 2%] 1 applic TOPICAL BID PRN PRN Reason: Rash Calcium Carbonate [Tums] 1,000 mg PO Q2H PRN PRN Reason: Heartburn Rosuvastatin [Crestor] 10 mg PO DAILY@1700 Magnesium Hydroxide [Milk of Magnesia] 2,400 mg PO DAILY PRN PRN Reason: Constipation Aspirin EC [Ecotrin Low Dose] 81 mg PO DAILY@0700 Changed Docusate [Colace] 100 mg PO BID@0700,1999 PRN #0 PRN Reason: Constipation Discontinued Acetaminophen [Tylenol Arthritis] 1,300 mg PO TID PRN PRN Reason: Pain guaiFENesin-DM 100-10MG/5ML [Robitussin DM] 5 ml PO Q4H PRN PRN Reason: Cough Oxybutynin Chloride 5 mg PO BID@0700,1700 HYDROcodone/APAP 5-325MG [[place] 5-325] 1 tab PO TID@0700,1400,1999 Discharge Medication List Aspirin EC [Ecotrin Low Dose] 81 mg PO DAILY@0700 01/27/21 [History] Calcium Carbonate [Tums] 1,000 mg PO Q2H PRN 01/27/21 [History] Citalopram Hydrobromide [CeleXA] 20 mg PO DAILY@0700 01/27/21 [History] Diltiazem HCl [Diltiazem HCl 24Hr ER] 240 mg PO DAILY@0700 01/27/21 [History] Magnesium Hydroxide [Milk of Magnesia] 2,400 mg PO DAILY PRN 01/27/21 [History] Miconazole Nitrate [Miconazole Nitrate 2%] 1 applic TOPICAL BID PRN 01/27/21 [History] Multivitamins, Thera [Multivitamin (formulary)] 1 tab PO DAILY 01/27/21 [History] Polyethylene Glycol 3350 [Miralax] 17 gm PO DAILY PRN 01/27/21 [History] Rosuvastatin [Crestor] 10 mg PO DAILY@1700 01/27/21 [History] glipiZIDE [Glucotrol] 5 mg PO DAILY@0700 01/27/21 [History] lisinopriL [Zestril] 2.5 mg PO DAILY@0700 01/27/21 [History] Acetaminophen Tab [Tylenol] 650 mg PO Q6HR PRN tab 01/30/21 [Rx] Cyanocobalamin [Vitamin B-12] 1,000 mcg PO DAILY tab 01/30/21 [Rx] Docusate [Colace] 100 mg PO BID@0700,2000 PRN #0 01/30/21 [Rx] Follow up Appointment(s)/Referral(s): Juanita Browne DO [STAFF PHYSICIAN] - 1 Week Manuel Jules NPC [Primary Care Provider] - 1-2 days Discharge Disposition: TRANSFER TO SNF/ECF
[2021-01-30 11:38] LABS: Glucose,Whole Blood 238 mg/dL (75-99)
[2021-01-30 12:06] VITALS: BP 147/75; PULSE 74; RESP 17; TEMP 97.2
--- NOTE | 2021-01-30 15:28 | P.PN ---
Subjective Progress Note Date: 01/30/21 Patient seen and examined sitting up in the bedside chair. He denies any acute changes through the night. He denies any focal deficits. MRI pending. Objective - Vital Signs Vital signs: Vital Signs Temp 98.0 F 01/30/21 04:54 Pulse 86 01/30/21 04:54 Resp 16 01/30/21 04:54 BP 163/70 01/30/21 04:54 Pulse Ox 96 01/30/21 04:54 Intake & Output 01/29/21 01/30/21 01/30/21 18:59 06:59 18:59 Output Total 0 Balance 0 Output: Post Void Residual 0 Other: Voiding Method Indwelling Catheter Bedside Commode # Voids 1 1 # Bowel Movements 1 - Exam General appearance: The patient is alert, oriented, appears in no acute distress. HET: Head is normocephalic and atraumatic. Neck: Supple without lymphadenopathy. Trachea midline. Heart: S1 S2. Regular rate and rhythm. Lungs: Clear to auscultation. Extremities: Normal skin color and turgor. No cyanosis, rash, ulceration, clubbing, or edema. Neurological: No focal deficits. Alert and oriented 3. Strength and sensation are grossly intact. - Labs CBC & Chem 7: 01/28/21 12:07 01/28/21 12:07 Labs: Abnormal Lab Results - Last 24 Hours (Table) 01/29/21 01/29/21 01/29/21 Range/Units 11:58 17:20 20:16 POC Glucose (mg/dL) 302 H 251 H 245 H (75-99) mg/dL 01/30/21 Range/Units 06:58 POC Glucose (mg/dL) 221 H (75-99) mg/dL Assessment and Plan Assessment: 1. Altered mental status changes 2. Bilateral ICA stenosis, 50-70% stenosis in the left ICA, less than 50% in the right ICA per carotid ultrasound 3. Recent fall 5. 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 History COPD 5. History of hypertension and hyperlipidemia 6. History of vascular disease, status post left endarterectomy 7. Diabetes mellitus Plan: 1. Continue aspirin and statin 2. Await MRI results 3. Await recommendations from neurology 4. No indication for any vascular surgical intervention at this time. Patient advised to follow up outpatient with vascular surgery for surveillance of carotid stenosis and further imaging. The impression and plan of care has been dictated as directed. Dr. Ortiz I performed a history and examination of this patient, discussed the same with the dictator. I agree with the dictator's note ,documented as a scribe. Any additional findings or plans will be noted.
== END 2021-01-30 16:59 ==
LOC: EC 15:38 → 5NMEDONC 16:55
PROVIDERS: ADMIT Internal Medicine; ATTEND Internal Medicine
DX: R26.89 Other abnormalities of gait and mobility (principal); W18.39XA Other fall on same level, initial encounter; Y92.099 Unspecified place in other non-institutional residence as the place of occurrence of the external cause; R33.9 Retention of urine, unspecified; Z20.822 Contact with and (suspected) exposure to COVID-19; I12.9 Hypertensive chronic kidney disease with stage 1 through stage 4 chronic kidney disease, or unspecified chronic kidney disease; E11.22 Type 2 diabetes mellitus with diabetic chronic kidney disease; N18.30 Chronic kidney disease, stage 3 unspecified; I65.23 Occlusion and stenosis of bilateral carotid arteries; J44.9 Chronic obstructive pulmonary disease, unspecified; M17.9 Osteoarthritis of knee, unspecified; M16.11 Unilateral primary osteoarthritis, right hip; M87.9 Osteonecrosis, unspecified; E78.5 Hyperlipidemia, unspecified; D64.9 Anemia, unspecified; Z79.84 Long term (current) use of oral hypoglycemic drugs; Z79.82 Long term (current) use of aspirin; Z79.899 Other long term (current) drug therapy; Z91.81 History of falling; Z87.891 Personal history of nicotine dependence; Z85.118 Personal history of other malignant neoplasm of bronchus and lung; Z85.46 Personal history of malignant neoplasm of prostate
CPT/HCPCS: 99285; 96372; 51798; 97162 ×2; 97166; 80048; 82607; 82746; 85025; 87635; 93880; G0378 ×4; J3420